=== PATIENT | female | born 1980 | race Caucasian/White ===

== ENCOUNTER 2020-11-07 21:10 | Emergency (ER) | payer MEDICAID ==
[~2020-11-07] VITALS: Ht 167.6 cm; Wt 72.6 kg
[~2020-11-07 21:10] MED LIST: IBUP-974 PO; PREN1KIT74 PO
[2020-11-07 21:16] VITALS: BP 126/83
--- NOTE | 2020-11-07 21:19 | NUR ---
TO LOBBY A/W BED AMBULATORY
[2020-11-07] MEDS ORDERED: NACL 0.9% 1,000 ML IV ONE (22:45)
[2020-11-07] MEDS ORDERED: NACL 0.9% 1,000 ML IV SCH (22:45)
[2020-11-07] MEDS ORDERED: MORPHINE SULFATE 2 MG/ML SYR IVP ONE (22:45)
[2020-11-07] MEDS ORDERED: ONDANSETRON 4 MG/2 ML VIAL IVP ONE ×2 (22:55)
[2020-11-07 23:02] LABS: BASOPHILS % (AUTO) 0.4 % (0.0-2.0); EOSINOPHILS % (AUTO) 0.1 % (0.0-4.0); HEMATOCRIT 37.3 % (36-48); HEMOGLOBIN 12.3 g/dL (12.0-16.0); LYMPHOCYTES # (AUTO) 1.3 K/uL (2.5-16.5); LYMPHOCYTES % (AUTO) 11.6 % (20.5-51.1); MEAN CORPUSCULAR HEMOGLOBIN 27 pg (27-31); MEAN CORPUSCULAR HGB CONC 33 g/dL (33-37); MEAN CORPUSCULAR VOLUME 81.1 fL (80-94); MONOCYTES # (AUTO) 0.5 K/uL (0.8-1.0); MONOCYTES % (AUTO) 4.4 % (1.7-9.3); NEUTROPHILS # (AUTO) 9.1 K/uL (1.8-7.7); NEUTROPHILS % (AUTO) 83.5 % (42.2-75.2); PLATELET COUNT (AUTO) 275 K/uL (140-450); RED CELL DISTRIBUTION WIDTH 16.6 % (11.6-13.7); WHITE BLOOD COUNT (AUTO) 10.9 K/uL (4.8-10.8)
[2020-11-07 23:02] LABS: APPEARANCE,URINE CLEAR (CLEAR); BILIRUBIN,URINE NEGATIVE (NEGATIVE); BLOOD, URINE TRACE-I (NEGATIVE); COLOR,URINE YELLOW (YELLOW); LEUKOCYTE ESTERASE ,URINE NEGATIVE (NEGATIVE); NITRITE, URINE NEGATIVE (NEGATIVE); PH,URINE 6.5 (5.0-9.0); UGLUCOSE NEGATIVE (NEGATIVE)
[2020-11-07 23:12] LABS: RBC,URINE 0-5 /HPF (0-5); WBC,URINE 0-5 /HPF (0-5)
[2020-11-07 23:20] LABS: ANION GAP 14.1 (8-16); CARBON DIOXIDE 24.7 mmol/L (21-32); CREATININE 0.8 mg/dL (0.6-1.3); POTASSIUM 3.8 mmol/L (3.5-5.1); TOTAL BILIRUBIN 0.6 mg/dL (0.0-1.0)
--- NOTE | 2020-11-07 23:36 | NUR ---
ULTRASOUND AT BEDSIDE.
[2020-11-08] MEDS ORDERED: cefTRIAXone 1,000 MG VIAL ONE (00:12)
--- NOTE | 2020-11-08 02:03 | NUR ---
pt currently asleep at bed. arousable via verbal stimuli. S.O at bedside
[2020-11-08] MEDS ORDERED: MORPHINE SULFATE 2 MG/ML SYR IVP ONE (02:45)
[2020-11-08] MEDS ORDERED: ONDA-24 SL (03:33)
[2020-11-08] MEDS ORDERED: CEPH-588 PO (03:33)
[2020-11-08 03:36] VITALS: BP 138/95
--- NOTE | 2020-11-08 03:44 | NUR ---
d/c with VSS. d/c education given. opportunity to ask questions given and answered. rx of zofran and keflex given. IV site removed, bleeding controlled with sterile gauze and reinforced with tape.
== END 2020-11-08 03:44 | disposition home or self-care (01) ==
LOC: MED 21:10
DX: K80.20 Calculus of gallbladder without cholecystitis without obstruction (principal); N39.0 Urinary tract infection, site not specified; R94.5 Abnormal results of liver function studies; Z88.0 Allergy status to penicillin; Z79.899 Other long term (current) drug therapy
CPT/HCPCS: 36415; 74176; 76705; 80053; 81001; 83690; 84703; 85025; 87040; 87086; 93005; 96361; 96365; 96375; 96376; 99285; J0696; J2270; J2405; J7030